=== PATIENT | female | born 1980 | race Caucasian/White ===

== ENCOUNTER 2017-11-13 02:04 | Inpatient (IN) | payer MEDICAID ==
[~2017-11-13] VITALS: Ht 152.4 cm; Wt 77.1 kg
[2017-11-13] MEDS ORDERED: DEXT 5%/LR + PITOCIN 20UNITS/L 1,000 ML IV SCH (02:18)
[2017-11-13] MEDS ORDERED: RHO(D) IMMUNE GLOBULIN 300 MCG/SYR IM ONE (02:30)
[2017-11-13] MEDS ORDERED: METHYLERGONOVINE MALEATE 0.2 MG/ML IM PRN (02:30)
[2017-11-13] MEDS: DEXT 5%/LACTATED RINGERS 1,000 ML IV SCH ×2 (02:35→08:26)
[2017-11-13 03:16] LABS: BASOPHILS % 0.2 % (0.0-2.0); EOSINOPHILS % 0.4 % (0.0-5.0); HEMATOCRIT. 31.9 % (36.0-48.0); HEMOGLOBIN. 10.6 g/dL (12.0-16.0); MEAN CORPUSCULAR HEMOGLOBIN 26.3 pg (28.0-32.0); MEAN CORPUSCULAR VOLUME 79.1 fL (81.0-99.0); MEAN PLATELET VOLUME 8.6 fl (7.4-10.4); MONOCYTES % 5.7 % (2.0-8.0); NEUTROPHILS % 81.7 % (40.0-76.0); PLATELET 216 x1000/uL (130-400); RED BLOOD CELL COUNT 4.03 mill/uL (4.2-5.4)
[2017-11-13 03:22] LABS: CHLORIDE 107 mEq/L (98-107)
[2017-11-13 03:25] LABS: CLARITY URINE CLEAR (CLEAR); COLOR URINE YELLOW (YELLOW); KETONES URINE NEGATIVE (NEGATIVE); LEUKOCYTE ESTERASE URINE TRACE (NEGATIVE); NITRITE URINE NEGATIVE (NEGATIVE); OCCULT BLOOD URINE 1+ (NEGATIVE); PH URINE 6.5 (4.5-8.0); PROTEIN URINE NEGATIVE (NEGATIVE); SPECIFIC GRAVITY URINE 1.021 (1.005-1.030)
[2017-11-13] MEDS ORDERED: PENICILLIN G POTASSIUM 5MMU in DEXTROSE 5% WATER 100ML IV NR (03:30)
[2017-11-13 03:42] LABS: *BARBITURATES SCREEN URINE NEGATIVE (NEGATIVE)
[2017-11-13 03:43] LABS: *COCAINE SCREEN URINE NEGATIVE (NEGATIVE); METHADONE URINE SCREEN NEGATIVE (NEGATIVE); OPIATES URINE SCREEN NEGATIVE (NEGATIVE); PHENCYCLIDINE URINE SCREEN NEGATIVE (NEGATIVE)
[2017-11-13 03:44] LABS: CANNABINOID URINE SCREEN NEGATIVE (NEGATIVE)
[2017-11-13 03:45] LABS: *AMPHETAMINES SCREEN URINE NEGATIVE (NEGATIVE); *BENZODIAZEPINES SCREEN URINE NEGATIVE (NEGATIVE)
[2017-11-13] MEDS ORDERED: GLYCERIN/WITCH HAZEL LEAF MEDICATED PAD TOP PRN (04:30)
[2017-11-13] MEDS ORDERED: LANOLIN OINT 0.25 GM TUBE TOP PRN (04:30)
[2017-11-13] MEDS ORDERED: IBUPROFEN 400MG TABLET PO PRN (04:30)
[2017-11-13] MEDS ORDERED: ACETAMINOPHEN WITH CODEINE 300/30MG TABLET PO PRN ×2 (04:30)
[2017-11-13] MEDS ORDERED: BENZOCAINE/LANOLIN/ALOE VERA SPRAY TOP PRN (04:30)
[2017-11-13] MEDS ORDERED: DIPHENHYDRAMINE 25MG CAPSULE PO PRN (04:30)
[2017-11-13 06:50] LABS: HEPATITIS B SURFACE ANTIGEN NEGATIVE
[2017-11-13] MEDS ORDERED: PENICILLIN G POTASSIUM 2.5 MMU in DEXTROSE 5% WATER 50 ML IV SCH (08:00)
[2017-11-13] MEDS ORDERED: PRENATAL VIT/FE FUMARATE/FA TABLET PO SCH (09:00)
[2017-11-13] MEDS ORDERED: INFLUENZA VIRUS VACCINE(AFLURIA) 0.5ML SYR IM ONE (09:30)
[2017-11-13 09:50] VITALS: BP 122/73
[2017-11-13 10:30] VITALS: BP 112/71
[2017-11-13 16:00] VITALS: BP 112/72
[2017-11-13 22:00] VITALS: BP 121/80
[2017-11-14 04:00] VITALS: BP 100/68
[2017-11-14 08:25] LABS: BASOPHILS % 0.1 % (0.0-2.0); EOSINOPHILS % 0.5 % (0.0-5.0); HEMOGLOBIN. 8.9 g/dL (12.0-16.0); MEAN CORPUSCULAR HEMOGLOBIN 26.1 pg (28.0-32.0); MEAN CORPUSCULAR VOLUME 79.4 fL (81.0-99.0); MEAN PLATELET VOLUME 8.4 fl (7.4-10.4); NEUTROPHILS % 73.4 % (40.0-76.0); PLATELET 195 x1000/uL (130-400); RED CELL DISTRIBUTION WIDTH 14.9 % (11.6-14.6)
[2017-11-14 08:30] VITALS: BP 101/66
[2017-11-14 17:18] VITALS: BP 104/61
[2017-11-14 22:00] VITALS: BP 125/75
[2017-11-15 08:00] VITALS: BP 106/66
[2017-11-15] MEDS ORDERED: TETANUS, DIPHTHERIA, PERTUSSIS VAC/PF 0.5ML (>7YR OLD) IM ONE (10:00)
== END 2017-11-15 12:00 | disposition home or self-care (01) | DRG 560 ==
LOC: OBSVTOIN 02:04 → L&D 02:04 → 7EST PP/OB 07:09 → L&D 08:19 → 7EST PP/OB 08:52
PROVIDERS: ADMIT Obstetrics & Gynecology; ATTEND Obstetrics & Gynecology
PROC: 10E0XZZ Delivery of Products of Conception, External Approach (ICD-10-PCS; principal; 2017-11-14)
DX: O77.0 Labor and delivery complicated by meconium in amniotic fluid (principal); O60.23X0 Term delivery with preterm labor, third trimester, not applicable or unspecified; Z3A.39 39 weeks gestation of pregnancy; Z37.0 Single live birth
CPT/HCPCS: 36415; 80305; 86592; 86703; 86762; 86850; 86900; 87340; 93971; 99281; J2210; J2540; J2590; J7060; J7121

== ENCOUNTER 2020-12-04 10:12 | Inpatient (IN) | payer MEDICAID ==
[~2020-12-04] VITALS: Ht 154.9 cm; Wt 79.4 kg
[~2020-12-04 10:12] MED LIST: MISOPROSTOL 200MCG TABLET ONE; OXYTOCIN 10 UNITS/ML 1ML ONE
[2020-12-04] MEDS ORDERED: METHYLERGONOVINE MALEATE 0.2 MG/ML IM PRN (11:45)
[2020-12-04] MEDS ORDERED: DEXT 5%/LR + PITOCIN 20UNITS/L 1,000 ML IV SCH ×2 (11:45→12:30)
[2020-12-04] MEDS ORDERED: MISOPROSTOL 200MCG TABLET RC SCH (11:45)
[2020-12-04] MEDS ORDERED: LIDOCAINE HCL 1% 20ML VIAL (Pyxis) INJ INFIL SCH (11:45)
[2020-12-04 12:24] LABS: BASOPHILS % 0.2 % (0.0-2.0); EOSINOPHILS % 0.1 % (0.0-5.0); HEMATOCRIT. 34.4 % (36.0-48.0); HEMOGLOBIN. 11.5 g/dL (12.0-16.0); LYMPHOCYTES % 11.6 % (20.0-50.0); MEAN CORPUSCULAR HEMOGLOBIN 27.2 pg (28.0-32.0); MEAN CORPUSCULAR VOLUME 81.6 fL (81.0-99.0); MEAN PLATELET VOLUME 8.6 fl (7.4-10.4); MONOCYTES % 5.7 % (2.0-8.0); NEUTROPHILS % 82.4 % (40.0-76.0); PLATELET 202 x1000/uL (130-400); RED BLOOD CELL COUNT 4.22 mill/uL (4.2-5.4)
[2020-12-04] MEDS ORDERED: RHO(D) IMMUNE GLOBULIN 300 MCG/SYR IM PRN (12:30)
[2020-12-04] MEDS ORDERED: LACTATED RINGERS 1,000 ML IV SCH (12:30)
[2020-12-04 12:37] LABS: INR 0.9; PARTIAL THROMBOPLASTIN TIME 26.4 sec (23.4-31.0); PROTHROMBIN TIME 9.8 sec (9.6-11.0)
[2020-12-04 12:52] LABS: CLARITY URINE CLEAR (CLEAR); COLOR URINE YELLOW (YELLOW); KETONES URINE TRACE (NEGATIVE); LEUKOCYTE ESTERASE URINE NEGATIVE (NEGATIVE); NITRITE URINE NEGATIVE (NEGATIVE); OCCULT BLOOD URINE 1+ (NEGATIVE); PROTEIN URINE 1+ (NEGATIVE); SPECIFIC GRAVITY URINE 1.024 (1.005-1.030); UROBILINOGEN URINE 0.2 E.U./dL (0.2-1.0)
[2020-12-04 13:11] LABS: CANNABINOID URINE SCREEN NEGATIVE (NEGATIVE); METHADONE URINE SCREEN NEGATIVE (NEGATIVE); OPIATES URINE SCREEN NEGATIVE (NEGATIVE); PHENCYCLIDINE URINE SCREEN NEGATIVE (NEGATIVE)
[2020-12-04 13:12] LABS: *AMPHETAMINES SCREEN URINE NEGATIVE (NEGATIVE); *BARBITURATES SCREEN URINE NEGATIVE (NEGATIVE); *BENZODIAZEPINES SCREEN URINE NEGATIVE (NEGATIVE); *COCAINE SCREEN URINE NEGATIVE (NEGATIVE)
[2020-12-04 13:46] LABS: HEPATITIS B SURFACE ANTIGEN NEGATIVE
[2020-12-04 14:00] VITALS: BP 119/69
[2020-12-04 14:30] VITALS: BP 117/66
[2020-12-04 15:30] VITALS: BP 112/58
[2020-12-04 20:00] VITALS: BP 112/69
[2020-12-04] MEDS: IBUPROFEN 800MG TABLET PO PRN (21:04)
[2020-12-05 03:30] VITALS: BP 105/63
[2020-12-05 08:00] VITALS: BP 91/55
[2020-12-05] MEDS ORDERED: PRENATAL VIT/FE FUMARATE/FA TABLET PO SCH (09:00)
[2020-12-05 09:05] LABS: BASOPHILS % 0.1 % (0.0-2.0); EOSINOPHILS % 0.5 % (0.0-5.0); HEMATOCRIT. 31.3 % (36.0-48.0); HEMOGLOBIN. 10.3 g/dL (12.0-16.0); LYMPHOCYTES % 24.2 % (20.0-50.0); MEAN CORPUSCULAR HEMOGLOBIN 27.3 pg (28.0-32.0); MEAN CORPUSCULAR VOLUME 82.8 fL (81.0-99.0); MEAN PLATELET VOLUME 8.3 fl (7.4-10.4); MONOCYTES % 6.3 % (2.0-8.0); NEUTROPHILS % 68.9 % (40.0-76.0); PLATELET 199 x1000/uL (130-400); RED BLOOD CELL COUNT 3.78 mill/uL (4.2-5.4); RED CELL DISTRIBUTION WIDTH 15.2 % (11.6-14.6)
[2020-12-05 15:25] VITALS: BP 106/65
[2020-12-05] MEDS: IBUPROFEN 800MG TABLET PO PRN (18:19)
[2020-12-05] MEDS: FERROUS SULFATE 325MG TABLET PO SCH (18:20)
[2020-12-05 19:30] VITALS: BP 117/79
[2020-12-06 04:00] VITALS: BP 109/70
[2020-12-06 07:40] VITALS: BP 119/63
[2020-12-06] MEDS: IBUPROFEN 400MG TABLET PO PRN ×2 (07:55→12:56)
[2020-12-06] MEDS: FERROUS SULFATE 325MG TABLET PO SCH ×2 (08:23→12:56)
[2020-12-06] MEDS ORDERED: FERR-63 PO (08:34)
[2020-12-06] MEDS ORDERED: IBUP-2030 PO (08:34)
[2020-12-06] MEDS ORDERED: MULT-1116 MT (08:34)
== END 2020-12-06 15:30 | disposition home or self-care (01) | DRG 560 ==
LOC: OBSVTOIN 10:12 → 8 EST LDRP 10:12 → 8EST 14:29
PROVIDERS: ADMIT Obstetrics & Gynecology; ATTEND Obstetrics & Gynecology
PROC: 10E0XZZ Delivery of Products of Conception, External Approach (ICD-10-PCS; principal; 2020-12-04)
DX: O90.81 Anemia of the puerperium (principal); Z37.0 Single live birth; Z3A.37 37 weeks gestation of pregnancy
CPT/HCPCS: 36415; 80305; 81003; 85025; 86592; 86703; 86762; 86850; 86900; 87340; 99281; G0378; J2590; J7120

== ENCOUNTER 2024-04-22 10:48 | Emergency (ER) | payer MEDICAID, OTHER ==
[~2024-04-22 10:48] MED LIST changes: +FERR-63 PO; +IBUP-2030 PO; -MISOPROSTOL 200MCG TABLET ONE; +MULT-1116 MT; -OXYTOCIN 10 UNITS/ML 1ML ONE
[2024-04-22] MEDS: SODIUM CHLORIDE 0.9% 1,000 ML IV ONE (11:03)
[2024-04-22 11:12] LABS: BASOPHILS % 0.1 % (0.0-2.0); DIFFERENTIAL COMMENT 0; EOSINOPHILS % 0.3 % (0.0-5.0); HEMATOCRIT. 34.1 % (36.0-48.0); HEMOGLOBIN. 10.6 g/dL (12.0-16.0); LYMPHOCYTES % 20.8 % (20.0-50.0); MEAN CORPUSCULAR HEMOGLOBIN 24.2 pg (28.0-32.0); MEAN CORPUSCULAR HGB CONC 31.2 g/dL (31.0-37.0); MEAN CORPUSCULAR VOLUME 77.6 fL (81.0-99.0); MEAN PLATELET VOLUME 8.1 fl (7.4-10.4); MONOCYTES % 7.5 % (2.0-8.0); NEUTROPHILS % 71.3 % (40.0-76.0); PLATELET 204 x1000/uL (130-400); RED CELL DISTRIBUTION WIDTH 16.8 % (11.6-14.6); WHITE BLOOD COUNT 12.4 x1000/uL (4.5-11.0)
[2024-04-22] MEDS ORDERED: ACETAMINOPHEN 1000MG/100ML 100 ML IV ONE (11:15)
[2024-04-22 11:21] LABS: CARBON DIOXIDE 19 mEq/L (21-32); CHLORIDE 105 mEq/L (98-107); POTASSIUM 4.2 mEq/L (3.5-5.1); SODIUM 137 mEq/L (136-145)
[2024-04-22 11:22] LABS: CALCIUM 9.3 mg/dL (8.7-10.4)
[2024-04-22 11:27] LABS: CREATININE 0.7 mg/dL (0.6-1.0); GLUCOSE 103 mg/dL (70-105); UREA NITROGEN BLOOD 11 mg/dL (9-23)
[2024-04-22 11:49] VITALS: BP 156/84; PULSE 108; RESP 18; O2SAT 100
[2024-04-22 12:21] LABS: B-HCG QUANTITATIVE 5995 mIU/mL (<3)
== END 2024-04-22 11:54 | disposition short-term general hospital (02) ==
LOC: ER 10:48
DX: O26.893 Other specified pregnancy related conditions, third trimester (principal); N85.8 Other specified noninflammatory disorders of uterus; Z3A.38 38 weeks gestation of pregnancy
CPT/HCPCS: 80048; 84702; 85025; 86850; 86870; 86900; 86901; 36415; 76815; 96360; 99291; J7030; Z7610; J0131